=== PATIENT | female | born 1960 | race African-American/Black ===

== ENCOUNTER 2016-12-06 15:35 | Emergency (ER) | payer MEDICAID ==
[~2016-12-06] VITALS: Ht 162.6 cm; Wt 56.0 kg
[~2016-12-06 15:35] MED LIST: ARIP5TAB8 PO; BUPROPION PO; CYCL5TAB PO; DICL75TA5 PO; HYDROXYZINE PO; MELO-58 PO; NAPR375T5 PO; OMEP20TA80 PO; RIZA10TA26 PO; SIMV10TA6 PO; [UNRECOGNIZED DRUG - OTHER] PO
[2016-12-06] MEDS ORDERED: SODIUM CHLORIDE 0.9% 1,000 ML IV ONE (18:05)
[2016-12-06] MEDS ORDERED: KETOROLAC 30MG/ML VIAL IV STA (18:05)
[2016-12-06 18:39] LABS: BASOPHILS % 1.1 % (0.0-2.0); EOSINOPHILS % 2.1 % (0.0-5.0); HEMATOCRIT. 37.7 % (36.0-48.0); HEMOGLOBIN. 12.4 g/dL (12.0-16.0); LYMPHOCYTES % 46.2 % (20.0-50.0); MEAN CORPUSCULAR HEMOGLOBIN 27.6 pg (28.0-32.0); MEAN CORPUSCULAR HGB CONC 32.7 g/dL (31.0-37.0); MEAN CORPUSCULAR VOLUME 84.2 fL (81.0-99.0); MEAN PLATELET VOLUME 7.8 fl (7.4-10.4); MONOCYTES % 9.6 % (2.0-8.0); PLATELET 248 x1000/uL (130-400); RED BLOOD CELL COUNT 4.48 mill/uL (4.2-5.4); RED CELL DISTRIBUTION WIDTH 14.1 % (11.6-14.6); WHITE BLOOD COUNT 5.2 x1000/uL (4.5-11.0)
[2016-12-06 18:41] LABS: CLARITY URINE CLOUDY (CLEAR); COLOR URINE YELLOW (YELLOW); GLUCOSE URINE NEGATIVE (NEGATIVE); KETONES URINE NEGATIVE (NEGATIVE); LEUKOCYTE ESTERASE URINE TRACE (NEGATIVE); NITRITE URINE NEGATIVE (NEGATIVE); OCCULT BLOOD URINE TRACE (NEGATIVE); PH URINE 5.5 (4.5-8.0); PROTEIN URINE NEGATIVE (NEGATIVE); SPECIFIC GRAVITY URINE 1.026 (1.005-1.030)
[2016-12-06 18:43] LABS: PROTHROMBIN TIME 10.8 sec
[2016-12-06 18:46] LABS: ALANINE AMINOTRANSFERASE 15 IU/L (13-61); ALBUMIN 3.6 g/dL (3.4-5.0); ANION GAP 11; CALCIUM 9.3 mg/dL (8.5-10.1); CARBON DIOXIDE 30 mEq/L (21-32); CHLORIDE 107 mEq/L (98-107); INDEX HEMOLYSI 1 (1-3); INDEX ICTERIC 1 (1-4); INDEX LIPEMIC 1 (1-3); LIPASE 125 IU/L (73-393); UREA NITROGEN BLOOD 16 mg/dL (7-21)
[2016-12-06 18:48] LABS: eGFR > 60 mL/min (>60)
[2016-12-06 19:19] LABS: BACTERIA URINE 1+; SQUAMOUS EPITHELIAL CELL URINE 2+ /lpf (RARE/1+)
[2016-12-06 19:20] LABS: RBC URINE 0-2 /hpf (0-2)
[2016-12-06 19:21] LABS: AMORPHOUS SEDIMENT URINE 1+ /lpf; CALCIUM OXALATE CRYSTALS URINE 1+ /lpf
[2016-12-06 19:27] VITALS: BP 137/56
== END 2016-12-07 01:31 | disposition home or self-care (01) ==
LOC: ER 18:18
DX: N30.90 Cystitis, unspecified without hematuria (principal); J45.909 Unspecified asthma, uncomplicated; Z79.899 Other long term (current) drug therapy; Z98.890 Other specified postprocedural states; Z79.1 Long term (current) use of non-steroidal anti-inflammatories (NSAID); Z85.72 Personal history of non-Hodgkin lymphomas
CPT/HCPCS: 36415; 74176; 80053; 81001; 83690; 85025; 85610; 96374; 99291; J1885; J7030; Z7610

== ENCOUNTER 2017-09-26 08:10 | Emergency (ER) | payer MEDICAID ==
[~2017-09-26] VITALS: Ht 167.6 cm; Wt 58.0 kg
[~2017-09-26 08:10] MED LIST changes: +ABIL5 PO; -ARIP5TAB8 PO; +MELO-106 PO; -MELO-58 PO; +OMEP20TA2 PO; -OMEP20TA80 PO
[2017-09-26] MEDS ORDERED: ONDANSETRON HCL 4MG/2ML VIAL IV STA (08:21)
[2017-09-26] MEDS ORDERED: SODIUM CHLORIDE 0.9% 1,000 ML IV ONE (08:21)
[2017-09-26] MEDS ORDERED: KETOROLAC 60MG/2ML VIAL IM STA (08:21)
[2017-09-26 08:53] LABS: EOSINOPHILS % 1.2 % (0.0-5.0); HEMATOCRIT. 40.8 % (36.0-48.0); HEMOGLOBIN. 13.3 g/dL (12.0-16.0); LYMPHOCYTES % 39.6 % (20.0-50.0); MEAN CORPUSCULAR HEMOGLOBIN 27.1 pg (28.0-32.0); MEAN PLATELET VOLUME 7.5 fl (7.4-10.4); MONOCYTES % 7.5 % (2.0-8.0); NEUTROPHILS % 50.7 % (40.0-76.0); PLATELET 308 x1000/uL (130-400); RED BLOOD CELL COUNT 4.92 mill/uL (4.2-5.4)
[2017-09-26 09:07] LABS: CARBON DIOXIDE 23 mEq/L (21-32); CHLORIDE 108 mEq/L (98-107)
[2017-09-26 09:10] LABS: PROTHROMBIN TIME 10.9 sec (9.4-11.6)
[2017-09-26 09:12] LABS: CLARITY URINE CLOUDY (CLEAR); COLOR URINE YELLOW (YELLOW); KETONES URINE 2+ (NEGATIVE); LEUKOCYTE ESTERASE URINE NEGATIVE (NEGATIVE); NITRITE URINE NEGATIVE (NEGATIVE); OCCULT BLOOD URINE 3+ (NEGATIVE); PH URINE 6.5 (4.5-8.0); PROTEIN URINE TRACE (NEGATIVE); SPECIFIC GRAVITY URINE 1.028 (1.005-1.030)
[2017-09-26] MEDS ORDERED: KETOROLAC 30MG/ML VIAL IV ONE (09:15)
[2017-09-26 13:00] VITALS: BP 127/64
== END 2017-09-26 14:02 | disposition home or self-care (01) ==
LOC: ER 08:14
DX: N20.1 Calculus of ureter (principal); J45.909 Unspecified asthma, uncomplicated
CPT/HCPCS: 36415; 74176; 76830; 76856; 76857; 80053; 81001; 83690; 85025; 85610; 96361; 96374; 96375; 99285; J1885; J2405; J7030; Z7610

== ENCOUNTER 2020-11-25 14:45 | Emergency (ER) | payer MEDICAID ==
[~2020-11-25] VITALS: Ht 167.6 cm; Wt 62.0 kg
[~2020-11-25 14:45] MED LIST changes: -SIMV10TA6 PO; +SIMV10TA97 PO
[2020-11-25 16:37] LABS: EOSINOPHILS % 2.2 % (0.0-5.0); HEMATOCRIT. 39.2 % (36.0-48.0); HEMOGLOBIN. 12.6 g/dL (12.0-16.0); LYMPHOCYTES % 31.6 % (20.0-50.0); MEAN CORPUSCULAR HEMOGLOBIN 26.8 pg (28.0-32.0); MEAN CORPUSCULAR VOLUME 83.6 fL (81.0-99.0); MEAN PLATELET VOLUME 7.7 fl (7.4-10.4); NEUTROPHILS % 56.2 % (40.0-76.0); PLATELET 243 x1000/uL (130-400); RED BLOOD CELL COUNT 4.68 mill/uL (4.2-5.4); RED CELL DISTRIBUTION WIDTH 14.5 % (11.6-14.6)
[2020-11-25 16:38] LABS: CLARITY URINE CLEAR (CLEAR); COLOR URINE YELLOW (YELLOW); KETONES URINE NEGATIVE (NEGATIVE); LEUKOCYTE ESTERASE URINE TRACE (NEGATIVE); NITRITE URINE NEGATIVE (NEGATIVE); OCCULT BLOOD URINE NEGATIVE (NEGATIVE); PROTEIN URINE NEGATIVE (NEGATIVE); SPECIFIC GRAVITY URINE 1.017 (1.005-1.030)
[2020-11-25 16:43] LABS: CHLORIDE 109 mEq/L (98-107)
[2020-11-25 16:50] LABS: *AMPHETAMINES SCREEN URINE NEGATIVE (NEGATIVE); *BARBITURATES SCREEN URINE NEGATIVE (NEGATIVE); *BENZODIAZEPINES SCREEN URINE NEGATIVE (NEGATIVE); *COCAINE SCREEN URINE NEGATIVE (NEGATIVE); CANNABINOID URINE SCREEN PRESUMTIVE POSITIVE (NEGATIVE); METHADONE URINE SCREEN NEGATIVE (NEGATIVE); OPIATES URINE SCREEN NEGATIVE (NEGATIVE); PHENCYCLIDINE URINE SCREEN NEGATIVE (NEGATIVE)
[2020-11-25 18:44] VITALS: BP 122/70
== END 2020-11-25 18:45 | disposition home or self-care (01) ==
LOC: ER 14:57
DX: L50.9 Urticaria, unspecified (principal); M54.16 Radiculopathy, lumbar region; F12.10 Cannabis abuse, uncomplicated; E78.5 Hyperlipidemia, unspecified; T50.B95A Adverse effect of other viral vaccines, initial encounter; Y92.018 Other place in single-family (private) house as the place of occurrence of the external cause
CPT/HCPCS: 36415; 71045; 80053; 80305; 81003; 83880; 84484; 85025; 85379; 93005; 93970; 99285

== ENCOUNTER 2023-05-31 11:26 | Emergency (ER) | payer MEDICAID, OTHER ==
[~2023-05-31] VITALS: Ht 165.1 cm; Wt 62.0 kg
[~2023-05-31 11:26] MED LIST changes: -OMEP20TA2 PO; +OMEP20TA23 PO; +RIZA-4 PO; -RIZA10TA26 PO
[2023-05-31 11:40] VITALS: BP 114/65; PULSE 72; RESP 14; TEMP 98.2; O2SAT 100
[2023-05-31] MEDS ORDERED: NAPR-681 MT (13:06)
== END 2023-05-31 13:28 | disposition home or self-care (01) ==
LOC: ER 11:26
DX: M79.605 Pain in left leg (principal); F41.9 Anxiety disorder, unspecified; J45.909 Unspecified asthma, uncomplicated; K59.00 Constipation, unspecified; G43.909 Migraine, unspecified, not intractable, without status migrainosus; F12.10 Cannabis abuse, uncomplicated; Z87.440 Personal history of urinary (tract) infections; Z79.899 Other long term (current) drug therapy
CPT/HCPCS: 73590; 93971; 99284